=== PATIENT | female | born 1950 | race Caucasian/White ===

== ENCOUNTER → 2017-10-18 | Outpatient (CLI) | payer MEDICARE, BC ==
--- NOTE | 2017-10-18 16:39 | BD ---
EXAMINATION TYPE: MG DEXA axial skeleton. DATE OF EXAM: 10/18/2017 COMPARISON: NONE CLINICAL HISTORY: 66-year-old female osteopenia Nuclear Medicine Study in the last 2 weeks: Barium Study in the last week: : Height: 63 Weight: 162.1 FRAX RISK QUESTIONS: Alcohol (3 or more units per day): NO Family History (Parent hip fracture): NO Glucocorticoids (More than 3mos): NO (Ex: prednisone, prednisolone, methylprednisolone, dexamethasone, and hydrocortisone). History of Fracture in Adulthood: NO Secondary Osteoporosis: 1. Type 1 Diabetes: NO 2. Hyperthyroidism: NO 3. Menopause before 45: NO 4. Malnutrition: NO 5. Chronic liver disease: NO Rheumatoid Arthritis: NO Current Tobacco Use: NO RISK FACTORS HISTORY OF: Hip Fracture (Right/Left): NO Spine Fracture: NO History of Wrist Fracture: NO Surgery to Spine/Hip(right/left)/Wrist (right/left): NO Family History of Osteoporosis: NO Active: YES Diet low in dairy products/other sources of calcium: YES Postmenopausal woman: AGE 54 Lost more than 2 inches in height since high school: YES Frequent falls: NO Poor Health: NO Hyperparathyroidism: NO Adrenal Insufficiency: NO MEDICATIONS: OMEPRAZOLE, BLOOD PRESSURE Additional History: EXAM MEASUREMENTS: Bone mineral densitometry was performed using the [employer] DSP System. Bone mineral density as measured about the Lumbar spine is: ----- L1-L4(G/cm2): 1.116 T Score Values are as follows: ----- L2: -1.0 ----- L3: -0.4 ----- L4: -0.3 ----- L1-L4: -0.5 Bone mineral density has: DECREASED -5.8 % since study of: 07.24.2012 Bone mineral density about the R hip (g/cm2): 0.917 Bone mineral density about the L hip (g/cm2): 0.923 T Score values are as follows: -----R Neck: -0.9 -----L Neck: -0.8 -----R Total: 0.2 -----L Total: 0.1 Bone mineral density has: DECREASED -4.2 % since study of: 07.24.2012 IMPRESSION: Normal (Values between +1 and -1 indicate normal bone mass). Consider repeating this study in 5 year s or sooner if there is some new clinical indication. NOTE: T-SCORE=SD OF THE YOUNG ADULT MEAN.
--- NOTE | 2017-10-19 10:02 | MM ---
Reason for exam: screening (asymptomatic). Last mammogram was performed 5 years and 11 months ago. History: Patient is postmenopausal, has history of breast cancer at age 54, has history of high-risk lesion on a previous biopsy at age 51, has history of high-risk lesion on a previous biopsy at age 51, and is nulliparous. High risk stereotactic core biopsy of the left breast, March 29, 2005. Excisional biopsy of the left breast, September 19, 2002. Excisional biopsy of the right breast, 1989. Core biopsy of the left breast. Physical Findings: A clinical breast exam by your physician is recommended on an annual basis and results should be correlated with mammographic findings. MG 3D Screening Mammo W/Cad Bilateral CC and MLO view(s) were taken. Prior study comparison: November 03, 2011, CAD bilateral diagnostic mammogram. The breast tissue is heterogeneously dense. This may lower the sensitivity of mammography. No significant changes when compared with prior studies. ASSESSMENT: Benign, BI-RAD 2 RECOMMENDATION: Routine screening mammogram of both breasts.
== END | disposition home or self-care (01) ==
LOC: RADMAMWWP 07:34
PROVIDERS: ATTEND Family Medicine
DX: Z12.31 Encounter for screening mammogram for malignant neoplasm of breast (principal); M85.80 Other specified disorders of bone density and structure, unspecified site; Z80.3 Family history of malignant neoplasm of breast
CPT/HCPCS: 77080; 77063; G0202

== ENCOUNTER → 2018-11-06 | Outpatient (CLI) | payer MEDICARE, BC ==
--- NOTE | 2018-11-09 13:16 | MM ---
Reason for exam: screening (asymptomatic). Last mammogram was performed 1 year and 1 month ago. History: Patient is postmenopausal, has history of breast cancer at age 54, has history of high-risk lesion on a previous biopsy at age 51, has history of high-risk lesion on a previous biopsy at age 51, and is nulliparous. High risk stereotactic core biopsy of the left breast, March 29, 2005. Excisional biopsy of the left breast, September 19, 2002. Excisional biopsy of the right breast, 1989. Core biopsy of the left breast. Physical Findings: A clinical breast exam by your physician is recommended on an annual basis and results should be correlated with mammographic findings. MG 3D Screening Mammo W/Cad Bilateral CC and MLO view(s) were taken. Prior study comparison: October 18, 2017, bilateral MG 3d screening mammo w/cad. November 03, 2011, CAD bilateral diagnostic mammogram. The breast tissue is heterogeneously dense. This may lower the sensitivity of mammography. No significant changes when compared with prior studies. ASSESSMENT: Benign, BI-RAD 2 RECOMMENDATION: Routine screening mammogram of both breasts in 1 year.
== END | disposition home or self-care (01) ==
LOC: RADMAMWWP 10:23
PROVIDERS: ATTEND Family Medicine
DX: Z12.31 Encounter for screening mammogram for malignant neoplasm of breast (principal)
CPT/HCPCS: 77063; 77067

== ENCOUNTER → 2020-09-24 | Outpatient (CLI) | payer MEDICARE ==
--- NOTE | 2020-09-26 12:36 | MM ---
Reason for exam: screening (asymptomatic). Last mammogram was performed 1 year and 11 months ago. History: Patient is postmenopausal, has history of breast cancer at age 54, has history of high-risk lesion on a previous biopsy at age 51, has history of high-risk lesion on a previous biopsy at age 51, and is nulliparous. Family history of breast cancer in mother at age 89. High risk stereotactic core biopsy of the left breast, March 29, 2005. Excisional biopsy of the left breast, September 19, 2002. Excisional biopsy of the right breast, 1989. Core biopsy of the left breast. Physical Findings: A clinical breast exam by your physician is recommended on an annual basis and results should be correlated with mammographic findings. MG 3D Screening Mammo W/Cad Bilateral CC and MLO view(s) were taken. Prior study comparison: November 06, 2018, bilateral MG 3d screening mammo w/cad. October 18, 2017, bilateral MG 3d screening mammo w/cad. The breast tissue is heterogeneously dense. This may lower the sensitivity of mammography. Benign appearing bilateral calcifications. No significant changes when compared with prior studies. ASSESSMENT: Benign, BI-RAD 2 RECOMMENDATION: Routine screening mammogram of both breasts in 1 year.
== END | disposition home or self-care (01) ==
LOC: RADMAMWWP 07:24
PROVIDERS: ATTEND Family Medicine
DX: Z12.31 Encounter for screening mammogram for malignant neoplasm of breast (principal)
CPT/HCPCS: 77063; 77067

== ENCOUNTER → 2021-05-04 | Outpatient (CLI) | payer MEDICARE | END | disposition home or self-care (01) | LOC: LABWHC1 11:13 | PROVIDERS: ATTEND Family Medicine | DX: Z20.822 Contact with and (suspected) exposure to COVID-19 (principal) | CPT/HCPCS: U0003; C9803; U0005 ==

== ENCOUNTER → 2021-10-13 | Outpatient (CLI) | payer MEDICARE ==
--- NOTE | 2021-10-14 10:52 | MM ---
Reason for exam: screening (asymptomatic). Last mammogram was performed 1 year and 1 month ago. History: Patient is postmenopausal, has history of breast cancer at age 54, has history of high-risk lesion on a previous biopsy at age 51, and has history of high-risk lesion on a previous biopsy at age 51. Family history of breast cancer in mother at age 89. High risk stereotactic core biopsy of the left breast, March 29, 2005. Excisional biopsy of the left breast, September 19, 2002. Excisional biopsy of the right breast, 1989. Core biopsy of the left breast. Physical Findings: A clinical breast exam by your physician is recommended on an annual basis and results should be correlated with mammographic findings. MG 3D Screening Mammo W/Cad Bilateral CC and MLO view(s) were taken. Prior study comparison: September 24, 2020, bilateral MG 3d screening mammo w/cad. November 06, 2018, bilateral MG 3d screening mammo w/cad. The breast tissue is heterogeneously dense. This may lower the sensitivity of mammography. There are benign appearing round calcifications bilaterally. There is no discrete abnormality. ASSESSMENT: Benign, BI-RAD 2 RECOMMENDATION: Routine screening mammogram of both breasts in 1 year.
== END | disposition home or self-care (01) ==
LOC: RADMAMWWP 07:21
PROVIDERS: ATTEND Family Medicine
DX: Z12.31 Encounter for screening mammogram for malignant neoplasm of breast (principal); Z85.3 Personal history of malignant neoplasm of breast; Z78.0 Asymptomatic menopausal state; Z80.3 Family history of malignant neoplasm of breast
CPT/HCPCS: 77063; 77067

== ENCOUNTER → 2022-11-08 | Outpatient (CLI) | payer MEDICARE ==
--- NOTE | 2022-11-09 15:43 | MM ---
Reason for Exam: Screening (asymptomatic). Last mammogram was performed 1 year(s) and 1 month(s) ago. Patient History: Menarche at age 12. First Full-Term at age 29. Late child-bearing (after 30). Postmenopausal. Breast cancer, age 54. Previous LCIS pathology result at age 51. Core Biopsy on the Left side. 1989, Excisional Biopsy on the Right side. 09/19/2002, Malignant Excisional Biopsy on the left side. 03/29/2005, High risk Stereotactic Core Biopsy on the left side. Mother had breast cancer, age 89. Prior Study Comparison: 11/06/2018 Bilateral Screening Mammogram, [facility]. 09/24/2020 Bilateral Screening Mammogram, [facility]. 10/13/2021 Bilateral Screening Mammogram, [facility]. Tissue Density: The breast tissue is heterogeneously dense. This may lower the sensitivity of mammography. Findings: Analyzed By CAD. There are benign-appearing rounded calcifications redemonstrated throughout the bilateral breasts. Stable round circumscribed 4 mm small mass in the anterior right breast upper-outer quadrant. Stable distortion in the upper aspect left breast. There is no suspicious new group of microcalcifications or new suspicious mass in either breast. Overall Assessment: Benign, BI-RAD 2 Management: Screening Mammogram of both breasts in 1 year. A clinical breast exam by your physician is recommended on an annual basis and results should be correlated with mammographic findings. Electronically signed and approved by: Evangelist Negron M.D.
== END | disposition home or self-care (01) ==
LOC: RADMAMWWP 12:48
PROVIDERS: ATTEND Family Medicine
DX: Z12.31 Encounter for screening mammogram for malignant neoplasm of breast (principal); Z78.0 Asymptomatic menopausal state; Z80.3 Family history of malignant neoplasm of breast
CPT/HCPCS: 77063; 77067

== ENCOUNTER → 2023-12-26 | Outpatient (CLI) | payer MEDICARE ==
--- NOTE | 2023-12-27 08:23 | MM ---
Reason for Exam: Screening (asymptomatic). Last mammogram was performed 1 year(s) and 1 month(s) ago. Patient History: Menarche at age 12. First Full-Term at age 29. Late child-bearing (after 30). Postmenopausal. Breast cancer, age 54. Previous LCIS pathology result at age 51. Core Biopsy on the Left side. 1989, Excisional Biopsy on the Right side. 09/19/2002, Malignant Excisional Biopsy on the left side. 03/29/2005, High risk Stereotactic Core Biopsy on the left side. Mother had breast cancer, age 89. Prior Study Comparison: 09/24/2020 Bilateral Screening Mammogram, [facility]. 10/13/2021 Bilateral Screening Mammogram, [facility]. 11/08/2022 Bilateral MG 3D screening mammo w/cad, [facility]. Tissue Density: The breast tissue is heterogeneously dense. This may lower the sensitivity of mammography. Findings: Analyzed By CAD. There is no suspicious group of microcalcifications or new suspicious mass in either breast. Overall Assessment: Benign, BI-RAD 2 Management: Screening Mammogram of both breasts in 1 year. . Patient should continue monthly self-breast exams. A clinical breast exam by your physician is recommended on an annual basis. This exam should not preclude additional follow-up of suspicious palpable abnormalities. Note on Marti scores and lifetime risk: 1. A Marti score greater than 3% is considered moderate risk. If this is the case, consider specialist referral to assess eligibility for a risk reducing agent. 2. If overall lifetime risk for the development of breast cancer is 20% or higher, the patient may qualify for future screening with alternating mammogram and breast MRI. Electronically signed and approved by: Ryan Felix M.D. Radiologis
== END | disposition home or self-care (01) ==
LOC: RADMAMWWP 14:04
PROVIDERS: ATTEND Family Medicine
DX: Z12.31 Encounter for screening mammogram for malignant neoplasm of breast (principal); Z80.3 Family history of malignant neoplasm of breast; Z78.0 Asymptomatic menopausal state; Z85.3 Personal history of malignant neoplasm of breast
CPT/HCPCS: 77063; 77067

== ENCOUNTER 2024-01-05 07:10 | Day surgery (SDC) | payer MEDICARE ==
[~2024-01-05 07:10] MED LIST: LIDOCAINE 1% (10MG/ML) FOR IV START INTRADERMA PRN
[2024-01-05] MEDS: LACTATED RINGERS 1,000 ML IV SCH (08:12)
[2024-01-05 08:21] VITALS: RESP 16; TEMP 97.8
[2024-01-05] MEDS ORDERED: PROPOFOL 10 MG/ML 20 ML VIAL IV ONE (08:48)
--- NOTE | 2024-01-05 08:53 | P.GSHP ---
History of Present Illness H&P Date: 01/05/24 Chief Complaint: Screening colonoscopy This is a 73-year-old female presents today for screening colonoscopy. Patient denies any significant GI complaints. Past Medical History Past Medical History: Hypertension Additional Past Medical History / Comment(s): small hernia, History of Any Multi-Drug Resistant Organisms: None Reported Past Surgical History: Breast Surgery Additional Past Surgical History / Comment(s): retinal repair for a tear, breast bx and aspiration, colonsocopy Past Anesthesia/Blood Transfusion Reactions: No Reported Reaction Smoking Status: Never smoker - Past Family History Father Family Medical History: No Reported History Medications and Allergies Home Medications Medication Instructions Recorded Confirmed Type Nebivolol HCl 5 mg PO DAILY 01/03/24 01/03/24 History Allergies Allergy/AdvReac Type Severity Reaction Status Date / Time No Known Allergies Allergy Verified 01/05/24 08:00 Surgical - Exam Vital Signs Temp Pulse Resp BP Pulse Ox 97.8 F 67 16 149/68 97 01/05/24 08:05 01/05/24 08:05 01/05/24 08:05 01/05/24 08:05 01/05/24 08:05 - General well developed, well nourished - Eyes PERRL - ENT normal pinna - Neck no masses - Respiratory normal expansion - Cardiovascular Rhythm: regular - Abdomen Abdomen: soft, non tender Assessment and Plan Assessment: Will perform screening colonoscopy.
--- NOTE | 2024-01-05 09:15 | P.OP ---
Date of Procedure: 01/05/24 Preoperative Diagnosis: Screening colonoscopy Postoperative Diagnosis: Total polyp Diverticulosis Procedure(s) Performed: Colonoscopy Anesthesia: MAC Surgeon: Raul Duncan Pathology: other (Rectum) Condition: stable Disposition: PACU Description of Procedure: The patient was placed on the endoscopy table in the lateral position. She received IV sedation. Digital rectal exam was performed. This revealed no abnormalities. The flexible colonoscope was then placed the patient anus and passed throughout the entire colon. The ileocecal valve was visualized. The cecum, ascending and transverse colon appeared normal. In the descending sigmoid colon there was diverticular changes noted. Scope was then brought back to the rectum and a small sessile polyp was seen. This removed with a cold forcep. The scope was withdrawn for the patient.
[2024-01-05 09:59] VITALS: BP 150/60; PULSE 78
== END 2024-01-05 09:54 | disposition home or self-care (01) ==
LOC: ORWHC2ENDO 07:10
PROVIDERS: ATTEND Surgery
DX: Z12.11 Encounter for screening for malignant neoplasm of colon (principal); K63.5 Polyp of colon; K62.1 Rectal polyp; K57.30 Diverticulosis of large intestine without perforation or abscess without bleeding; I10 Essential (primary) hypertension; Z98.890 Other specified postprocedural states; Z79.899 Other long term (current) drug therapy
CPT/HCPCS: 88305; 45380; J2704

== ENCOUNTER → 2024-04-09 | Outpatient (CLI) | payer MEDICARE ==
--- NOTE | 2024-04-11 12:20 | MR ---
EXAMINATION TYPE: MR shoulder RT wo con DATE OF EXAM: 04/09/2024 COMPARISON: Outside right shoulder x-ray April 03, 2024 HISTORY: Right shoulder pain and discomfort since 02-16-24 TECHNIQUE: Multiplanar, multisequence imaging of the right shoulder is performed without contrast. FINDINGS: Rotator Cuff: Increased signal with adjacent fluid in the supraspinatus muscle and tendon. Full-thick ness retracted tear of the supraspinatus tendon to the level of the acromion coronal image 18. Approx imately 2.3 cm tendon retraction noted. Infraspinatus tendon is intact. Some fibers of the subscapula ris tendon are intact with surrounding fluid and some heterogeneity. Significant tear of at least ron f of the inferior fibers are identified. Mild to moderate atrophy of the subscapularis muscle bulk. Acromioclavicular Joint: Moderate narrowing and spurring. Moderate capsular hypertrophy. Glenohumeral Joint: Large joint effusion. Bulging of the anterior and posterior glenohumeral joint re cess. [id number] inferior glenohumeral joint narrowing. Labrum: Poor visualization of normal superior labrum, large tear is felt present. Biceps Tendon: The long head of biceps is not identified in normal location within bicipital groove. Normal Biceps anchor is not identified Bone marrow signal: No focal abnormal marrow signal is appreciated. Other: No additional significant abnormality is appreciated. IMPRESSION: 1. Tendinosis and significant partial tearing of the subscapularis tendon may be chronic. 2. Full-thickness retracted tear of the supraspinatus tendon may be more acute in age. 3. Nonvisualized long head of biceps suggesting age-indeterminate favored chronic tear/dislocation. L arge Superior labral tear. 4. Large glenohumeral joint effusion.
== END | disposition home or self-care (01) ==
LOC: RADMRIMAIN 15:25
PROVIDERS: ATTEND Orthopaedic Surgery
DX: S46.011A Strain of muscle(s) and tendon(s) of the rotator cuff of right shoulder, initial encounter (principal); M67.813 Other specified disorders of tendon, right shoulder; M25.411 Effusion, right shoulder

== ENCOUNTER → 2024-04-16 | Outpatient (CLI) | payer MEDICARE ==
--- NOTE | 2024-04-17 08:10 | US ---
EXAMINATION TYPE: US arterial LE single level DATE OF EXAM: 04/16/2024 2:05 PM CLINICAL INDICATION: Female, 73 years old with history of I73.9 PERIPHERAL VASCULAR DISEASE, UNSPECIF IED; toe numbness, bilateral reddish splots on feet History of: Smoker: No Hypertension: Takes medication Diabetic: No Hyperlipidemia: No TIA/CVA: No Previous Vascular Surgery: No CAD: No WA: No Vascular Ulcers: No Claudication: No Gangrene: No Doppler Waveforms: Right: Biphasic waveforms with monophasic waveform in the digital artery Left: Monophasic waveforms with biphasic waveforms within the posterior tibial artery. Right Brachial Pressure: 122 Left Brachial Pressure: 136 Ankle-Brachial Indices: Right: 1.1 Left: 1.1 (Vessel hardening > 1.4; Normal 0.9 - 1.4, Moderate 0.7 - 0.9, Severe 0.5-0.7) IMPRESSION: 1. No significant ratio abnormality to suggest significant stenosis.
== END | disposition home or self-care (01) ==
LOC: RADUSWWP 13:35
PROVIDERS: ATTEND Family Medicine
DX: I73.9 Peripheral vascular disease, unspecified (principal)
CPT/HCPCS: 93922

== ENCOUNTER → 2024-08-09 | Outpatient (CLI) | payer MEDICARE ==
[2024-08-09 15:21] LABS: Basophils # (A) 0.03 X 10*3/uL (0.00-0.10); Basophils % (A) 0.5 %; Eosinophils # (A) 0.12 X 10*3/uL (0.04-0.35); HCT 42.9 % (37.2-46.3); HGB 13.5 g/dL (12.0-15.0); Lymphocytes # (A) 1.27 X 10*3/uL (0.90-5.00); Lymphocytes % (A) 20.7 %; MCH 27.2 pg (27.0-32.0); MCHC 31.5 g/dL (32.0-37.0); MCV 86.5 FL (80.0-97.0); Mean Platelet Volume 10.9 FL (9.5-12.2); Monocytes # (A) 0.48 X 10*3/uL (0.20-1.00); Monocytes % (A) 7.8 %; NRBC Per 100 WBC 0 X 10*3/uL (0.00-0.01); Neutrophils # (A) 4.22 X 10*3/uL (1.80-7.70); Neutrophils % (A) 68.8 %; Platelet Count 207 X 10*3/uL (140-440); RBC 4.96 X 10*6/uL (4.10-5.20); RDW 13.2 % (11.5-14.5); WBC 6.13 X 10*3/uL (4.50-10.00)
== END | disposition home or self-care (01) ==
LOC: LABPAT 11:31
PROVIDERS: ATTEND Surgery
DX: Z01.818 Encounter for other preprocedural examination
CPT/HCPCS: 85025; 86850; 86900; 86901; 93005

== ENCOUNTER 2024-08-14 08:27 | Day surgery (SDC) | payer MEDICARE ==
[~2024-08-14 08:27] MED LIST changes: +HYDROmorphone 0.5 MG/0.5 ML SYRINGE IVP PRN; +MIDAZOLAM 2 MG/2 ML VIAL IV PRN
[2024-08-14] MEDS: IV FLUID CONTINUATION 1,000 ML IV ONE ×3 (09:03→12:12)
[2024-08-14] MEDS: ONDANSETRON 4 MG/2 ML VIAL IVP ONE (09:11)
[2024-08-14] MEDS: ACETAMINOPHEN TAB 500 MG TAB PO PRN (09:11)
[2024-08-14] MEDS: DEXAMETHASONE SOD PHOSPHATE 4 MG/ML 1 ML VIAL IV ONE (09:12)
[2024-08-14] MEDS: LACTATED RINGERS 1,000 ML IV SCH (09:19)
[2024-08-14] MEDS: HEPARIN SODIUM,PORCINE 5,000 UNIT/ML 1 ML VIAL SQ PRN (09:27)
[2024-08-14] MEDS ORDERED: LIDOCAINE 1% INJ 10MG/ML (20 ML MDV) ONE (10:05)
[2024-08-14] MEDS ORDERED: ROCURONIUM 10 MG/ML (5 ML VIAL) IV ONE (10:05)
[2024-08-14] MEDS ORDERED: NEOSTIGMINE 1 MG/ML 10 ML VIAL ONE (10:05)
[2024-08-14] MEDS ORDERED: KETOROLAC 15 MG/ML 1 ML VIAL ONE (10:05)
[2024-08-14] MEDS ORDERED: GLYCOPYRROLATE 0.2 MG/ML 2 ML VIAL ONE (10:05)
[2024-08-14] MEDS ORDERED: fentaNYL (PF) 50 MCG/ML 2 ML AMP ONE (10:05)
[2024-08-14] MEDS ORDERED: PROPOFOL 10 MG/ML 20 ML VIAL IV ONE (10:05)
[2024-08-14] MEDS ORDERED: ePHEDrine 50 MG/ML 1 ML VIAL ONE (10:05)
[2024-08-14] MEDS ORDERED: SUCCINYLCHOLINE CHLORIDE 200 MG/10 ML VIAL IV ONE (10:05)
[2024-08-14] MEDS: LIDOCAINE 1%-EPI 1:100,000 20 ML VIAL SQ ONE (10:23)
--- NOTE | 2024-08-14 10:55 | P.OP ---
Date of Procedure: 08/14/24 Preoperative Diagnosis: Right inguinal hernia Postoperative Diagnosis: Right inguinal hernia Procedure(s) Performed: Laparoscopic robot-assisted repair of right inguinal hernia Transversus abdominis plane block Anesthesia: ROSE MARIE Surgeon: Raul Duncan Estimated Blood Loss (ml): 5 Pathology: other Condition: stable Disposition: PACU Description of Procedure: The patient's placed on the operating table in the supine position. The patient received general anesthesia. The patient's abdomen was prepped and draped in usual sterile fashion. The skin was anesthetized 1% local Xylocaine at the incision sites. Using an 11 blade a skin incision was made at the umbilicus. The fascia was grasped with a [place] and then the peritoneal cavity was entered with the Veress needle. Position of the Veress needle was confirmed with a positive drop test. After adequate insufflation a 5 mm trocar was placed into the peritoneal cavity. The Laparoscope was placed the peritoneal cavity. And a robotic 8 mm trocar was placed in the right lateral position and then another 8 mm robotic trochars placed in the left lateral position. The original 5 mm trocar was exchanged for a 12 mm trocar. A four-quadrant transversus abdominis plane block was performed 1% local Xylocaine. The patient was placed in reverse Trendelenburg and then the patient was docked to the robot. Next the peritoneum over top of the hernia was incised and then using blunt and sharp dissection and electrocautery the hernia sac was dissected free from the floor of the inguinal canal. The hernia sac was completely reduced into the peritoneal cavity. And then using the [employer] associate professor of forest[employer] mesh the hernia was repaired. The peritoneum was then sutured with 20V lock suture. The patient was then undocked the robot. The needle was withdrawn from the peritoneal cavity. The umbilical trocar site was closed with 0 Ethibond suture. The skin was closed interrupted 3-0 Monocryl suture. Dermabond dressing was applied. Patient was sent to recovery in stable condition.
[2024-08-14 11:01] VITALS: TEMP 97.2
[2024-08-14 13:35] VITALS: BP 121/66; PULSE 60; RESP 16
== END 2024-08-14 13:50 | disposition home or self-care (01) ==
LOC: OR 08:27
PROVIDERS: ATTEND Surgery
DX: K40.90 Unilateral inguinal hernia, without obstruction or gangrene, not specified as recurrent

== ENCOUNTER → 2025-03-26 | Outpatient (CLI) | payer MEDICARE ==
--- NOTE | 2025-03-26 14:05 | MM ---
Reason for Exam: Screening (asymptomatic). Last mammogram was performed 1 year(s) and 3 month(s) ago. Patient History: Menarche at age 12. First Full-Term at age 29. Late child-bearing (after 30). Postmenopausal. Breast cancer, age 54. Previous LCIS pathology result at age 51. Core Biopsy on the Left side. 1989, Excisional Biopsy on the Right side. 09/19/2002, Malignant Excisional Biopsy on the left side. 03/29/2005, High risk Stereotactic Core Biopsy on the left side. Mother had breast cancer, age 89. Prior Study Comparison: 11/06/2018 Bilateral Screening Mammogram, [facility]. 09/24/2020 Bilateral Screening Mammogram, [facility]. 10/13/2021 Bilateral Screening Mammogram, [facility]. 11/08/2022 Bilateral MG 3D screening mammo w/cad, [facility]. 12/26/2023 Bilateral MG 3D screening mammo w/cad, [facility]. Tissue Density: The breasts are heterogeneously dense, which may obscure small masses. Findings: There are benign round calcifications bilaterally more numerous in the right breast redemonstrated. Benign-appearing vascular calcification in the right breast is again seen. There is no suspicious group of microcalcifications or new suspicious mass in either breast. Overall Assessment: Benign, BI-RAD 2 Management: Screening Mammogram of both breasts in 1 year. . Patient should continue monthly self-breast exams. A clinical breast exam by your physician is recommended on an annual basis. This exam should not preclude additional follow-up of suspicious palpable abnormalities. Note on Marti scores and lifetime risk: 1. A Marti score greater than 3% is considered moderate risk. If this is the case, consider specialist referral to assess eligibility for a risk reducing agent. 2. If overall lifetime risk for the development of breast cancer is 20% or higher, the patient may qualify for future screening with alternating mammogram and breast MRI. [facility], , 03/26/2025 2:03 PM. Electronically signed and approved by: Evangelist Negron M.D.
== END | disposition home or self-care (01) ==
LOC: RADMAMWWP 10:53
PROVIDERS: ATTEND Family Medicine
DX: Z12.31 Encounter for screening mammogram for malignant neoplasm of breast (principal); R92.333 Mammographic heterogeneous density, bilateral breasts; Z78.0 Asymptomatic menopausal state; Z80.3 Family history of malignant neoplasm of breast; Z85.3 Personal history of malignant neoplasm of breast
CPT/HCPCS: 77063; 77067